=== PATIENT | female | born 1940 | race Caucasian/White ===

== ENCOUNTER → 2016-08-31 | Outpatient (CLI) | payer OTHER ==
--- NOTE | 2016-08-31 17:47 | MR ---
MRI of the Lumbar Spine (Without Contrast) 1544 hours Clinical Indications: Low back pain. M54.5. Technique: Sagittal and axial T1 and T2 and sagittal STIR MR sequences of the lumbar spine, without contrast. Axial imaging from T11 through S1. Comparison: MRI February 2014. Findings: Lumbar vertebral bodies are of normal height, without compression fractures. Conus medull kelsey appears normal and ends at L2. Moderate levoscoliosis. T11-T12: No disk herniation or stenosis. T12-L1: A 2-mm left paramedian disk herniation, without significant central canal or neural foramina l stenosis. L1-L2: Mild degenerative disk disease and minimal disk bulge, with mild bilateral facet arthropathy. No central canal or neural foraminal stenosis. L2-L3: Mild degenerative disk disease, mild disk bulge, mild bilateral facet arthropathy, and minima l retrolisthesis resulting in minimal central canal stenosis, without neural foraminal stenosis. L3-L4: Severe degenerative disk disease, with moderate loss of disk height, circumferential disk bul ge and osteophytes, asymmetrically more prominent towards the right, and severe bilateral facet arthr opathy resulting in minimal degenerative grade 1 retrolisthesis, moderate central canal stenosis, sli ghtly worse than the previous study, severe right neural foraminal stenosis, and mild left neural for aminal stenosis, worse than the previous study also. L4-L5: Severe degenerative disk disease, with moderate loss of disk height, endplate diskogenic delgado ges, circumferential disk bulge and osteophytes, left paramedian 3-mm disk herniation, severe bilater al facet arthropathy, resulting in severe central canal stenosis and mild to moderate bilateral neura l foraminal stenosis, slightly worse than the previous study. L5-S1: Severe degenerative disk disease, severe loss of disk height, degenerative grade 2 anterolist hesis, approximately 8 mm, with unroofing of the disk space and severe bilateral facet arthropathy re sulting in severe central canal stenosis, moderate to severe left neural foraminal stenosis, and mild to moderate right neural foraminal stenosis, worse than the previous study. S1-S2: Moderate-sized rudimentary disk space, without disk herniation or stenosis. Impressions 1. L5-S1: Severe central canal stenosis and moderate to severe left neural foraminal stenosis secon carrie to degenerative grade 2 anterolisthesis, severe degenerative disk disease, disk bulge, and sever e bilateral facet arthropathy. 2. L4-L5: Severe central canal stenosis and mild to moderate bilateral neural foraminal stenosis se condary to severe degenerative disk disease, disk bulge, and severe bilateral facet arthropathy. 3. Interval worsening at L4-L5 and L5-S1 since the previous study. 4. Please see above findings at specific disk levels. E:vonnie
== END ==
LOC: FIMAGING 15:13
PROVIDERS: ATTEND Physician Assistant
DX: M51.25 Other intervertebral disc displacement, thoracolumbar region (principal); M51.36 Other intervertebral disc degeneration, lumbar region; M51.37 Other intervertebral disc degeneration, lumbosacral region; M43.16 Spondylolisthesis, lumbar region; M43.17 Spondylolisthesis, lumbosacral region; M12.88 Other specific arthropathies, not elsewhere classified, other specified site; M99.73 Connective tissue and disc stenosis of intervertebral foramina of lumbar region; M48.06 Spinal stenosis, lumbar region; M48.07 Spinal stenosis, lumbosacral region

== ENCOUNTER → 2017-04-14 | Outpatient (CLI) | payer OTHER | LOC: BHCLAF 14:45 | PROVIDERS: ATTEND Internal Medicine Cardiovascular Disease | DX: I34.0 Nonrheumatic mitral (valve) insufficiency (principal); I36.1 Nonrheumatic tricuspid (valve) insufficiency; I10 Essential (primary) hypertension | CPT/HCPCS: 93306-PO ==

== ENCOUNTER → 2017-11-27 | Outpatient (CLI) | payer OTHER | LOC: FIMAGING 14:34 | PROVIDERS: ATTEND Family Medicine | DX: Z13.820 Encounter for screening for osteoporosis (principal); M85.89 Other specified disorders of bone density and structure, multiple sites; Z78.0 Asymptomatic menopausal state ==

== ENCOUNTER 2018-03-23 20:44 | Observation (INO) | payer OTHER ==
--- NOTE | 2018-03-23 21:05 | EDPHY ---
H & P Time Seen by Provider: 03/23/18 20:52 HPI/ROS: CHIEF COMPLAINT: Left knee pain HISTORY OF PRESENT ILLNESS: Patient is a 77-year-old female with history of severe arthritis bilateral knees reports ground level fall at her house when she tripped over her carpet and landed on her left knee. She did bump her head on a counter on the way down but denies any neck pain or loss of consciousness or headache. She takes a daily 325 aspirin but no other blood thinners. She denies syncopal event loss of consciousness. She denies any chest pain or shortness of breath or abdominal pain. She reports she was able to ambulate briefly after falling but this is painful and has not been able to ambulate since. She lives in a small apartment attached to the house for her children. REVIEW OF SYSTEMS: Constitutional: No fever, no chills. Eyes: No discharge. ENT: No sore throat. Cardiovascular: No chest pain, no palpitations. Respiratory: No cough, no shortness of breath. Gastrointestinal: No abdominal pain, no vomiting. Genitourinary: No hematuria. Musculoskeletal: No back pain. Skin: No rashes. Neurological: No headache. Smoking Status: Never smoked Physical Exam: General Appearance: Alert and no distress. Obese. No signs of head trauma. No cervical spine tenderness Eyes: Pupils equal and round no injection. Respiratory: Chest is nontender, lungs are clear to auscultation. Cardiac: regular rate and rhythm. Gastrointestinal: Abdomen is soft and nontender, no masses, bowel sounds normal. Musculoskeletal: Neck is supple and nontender. Large ecchymosis to left knee without deformity. Neurovascular intact distal to the knee. No leg shortening or external rotation. Log roll with bilateral lower extremity without any pain. Palpation of the pelvis shows no instability Skin: No rashes or lesions. Constitutional: Initial Vital Signs Temperature (C) 36.9 C 03/23/18 20:46 Heart Rate 73 03/23/18 20:46 Respiratory Rate 16 03/23/18 20:46 Blood Pressure 118/87 H 03/23/18 20:46 O2 Sat (%) 98 03/23/18 20:46 O2 Delivery Mode Room Air Allergies/Adverse Reactions: adhesive tape Allergy (Intermediate, Verified 03/23/18 20:50) Blistering skin lisinopril Allergy (Mild, Verified 03/23/18 20:50) COUGH losartan potassium [From Cozaar] Allergy (Unknown, Verified 03/23/18 20:50) Home Medications: Medication Instructions Recorded Diazepam [Valium 5 MG (*)] 5 mg PO HS PRN 03/14/12 Omeprazole 20 mg PO DAILY 03/14/12 Aspirin EC [Aspirin EC 81 mg (*)] 81 mg PO BID 03/22/12 Acetaminophen [Tylenol ES 500 mg 1,000 mg PO Q6 PRN 12/02/13 (*)] Acetaminophen/Codeine 300/30Mg 1 each PO DAILY PRN 12/02/13 [Tylenol #3 (*)] Ascorbic Acid [Vitamin C 500 mg 500 mg PO DAILY 12/02/13 (*)] Calcium Carbonate [Oyster Shell 500 mg PO DAILY 12/02/13 Calcium 500 mg (*)] Citalopram Hydrobromide [celeXA 10 10 mg PO DAILY 12/02/13 MG] Clobetasol Propionate 15 gm TP FR@09 12/02/13 Estrogren Compounded Cream 1 sherie VG Q2D@2100 12/02/13 Gabapentin [Neurontin 300 MG (*)] 600 mg PO HS 12/02/13 Herbals/Supplements -Info Only 1 each PO AD 12/02/13 [place]-3 Fatty Acids [Fish Oil 1000 1,000 mg PO TID 12/02/13 mg (*)] Psyllium Seed/Aspartame [Metamucil 1 tsp PO BID 12/02/13 Powder] Sodium Bicarbonate [Na Bicarb] 1,300 mg PO BID 12/02/13 clonIDINE [Catapres (*)] 0.1 mg PO BID 12/02/13 Metoprolol Tartrate [Lopressor 50 50 mg PO BID 08/18/14 mg (*)] Hydrocortisone Acetate 25 mg [place] BID PRN #4 supp 08/20/14 [Hemorrhoidal Hc 25 mg supp (*)] Oseltamivir Phosphate [Tamiflu 75 75 mg PO BIDMEAL #6 cap 08/20/14 mg (*)] SUMAtriptan [Imitrex Sc Injection] 12 mg SQ Q1H PRN #5 vial 08/20/14 Medical Decision Making - Diagnostics Imaging Results: Imaging Impressions Knee X-Ray 03/23/18 20:58 Impression: 1. No acute osseous abnormality. 2. Small suprapatellar joint effusion. 3. Tricompartment osteoarthrosis. Head CT 03/23/18 21:05 Impression: No acute intracranial process. Changes of chronic microvascular ischemic disease. Findings and recommendations discussed with Tom Lal at 2145 hour , 03/23/2018. ED Course/Re-evaluation: Patient was given [place] for pain and re-evaluated. She felt some improvement with pain and was road tested. She was unable to stand and bear any weight on the knee. She denies any hip pain once again. She was admitted for observation and physical therapy evaluation for safe discharge home. Differential Diagnosis: Skull fracture, intracranial bleed, rib fracture, knee dislocation, hip fracture - Data Points Medications Given: Discontinued Medications Acetaminophen (Tylenol) 1,000 mg PO EDNOW ONE Stop: 03/23/18 21:59 Last Admin: 03/23/18 22:04 Dose: Not Given Acetaminophen/Codeine Phosphate (Tylenol #3) 1 tab PO EDNOW ONE Stop: 03/23/18 22:04 Last Admin: 03/23/18 22:05 Dose: Not Given Hydrocodone Bitart/Acetaminophen ([place] 5/325) 1 tab PO EDNOW ONE Stop: 03/23/18 22:04 Last Admin: 03/23/18 22:06 Dose: 1 tab Departure - Departure Disposition: Home, Routine, Self-Care Clinical Impression: Knee contusion, Scalp contusion Condition: Good
[2018-03-23] MEDS ORDERED: ACETAMINOPHEN 500 MG TAB PO ONE (21:58)
[2018-03-23] MEDS ORDERED: ACETAMINOPHEN 500 MG TAB ONE (21:58)
[2018-03-23] MEDS ORDERED: ACETAMINOPHEN/CODEINE 300/30MG TAB PO ONE (22:03)
[2018-03-23] MEDS ORDERED: HYDROCODONE/APAP 5/325 TAB PO ONE (22:03)
[2018-03-23] MEDS ORDERED: ONDANSETRON DISINTEGRATING 4 MG TAB PO PRN (22:42)
[2018-03-23] MEDS ORDERED: ACETAMINOPHEN 325 MG TAB PO PRN (22:42)
[2018-03-23] MEDS ORDERED: ONDANSETRON 4 MG/2 ML VIAL IVP PRN (22:42)
--- NOTE | 2018-03-24 00:24 | PDGENHP ---
History and Physical - Chief Complaint Fall - History of Present Illness 77 yo F w/ hx of OA, POTS, neuropathy, HTN, and CKD presents after a mechanical fall. Patient was in her usual state of health until today when she tripped on a rug in her house and fell. She fell onto her L knee leading to immediate, severe pain. She denies any precipitating her fall such as chest pain, shortness of breath, or syncope. Her evaluation in the ED was mostly unremarkable aside from L knee contusion and effusion. She has been unable to ambulate as a result and therefore is unsafe to return home, where she lives independently. She is a high fall risk at baseline to due to history of POTS and neuropathy. Case discussed with MI Valdivia in the emergency department; previous records reviewed including last discharge summary by Dr. Natalie Silver available in EMR. History Information - Allergies/Home Medication List Allergies/Adverse Reactions: adhesive tape Allergy (Intermediate, Verified 03/23/18 20:50) Blistering skin lisinopril Allergy (Mild, Verified 03/23/18 20:50) COUGH losartan potassium [From Cozaar] Allergy (Unknown, Verified 03/23/18 20:50) Home Medications: Diazepam [Valium 5 MG (*)] 5 mg PO HS PRN 03/14/12 [Last Taken 08/11/14] Omeprazole 20 mg PO DAILY 03/14/12 [Last Taken 08/17/14] Aspirin EC [Aspirin EC 81 mg (*)] 81 mg PO BID 03/22/12 [Last Taken 08/18/14] Acetaminophen [Tylenol ES 500 mg (*)] 1,000 mg PO Q6 PRN 12/02/13 [Last Taken Unknown] Acetaminophen/Codeine 300/30Mg [Tylenol #3 (*)] 1 each PO DAILY PRN 12/02/13 [ Last Taken Unknown] Ascorbic Acid [Vitamin C 500 mg (*)] 500 mg PO DAILY 12/02/13 [Last Taken Unknown] Calcium Carbonate [Oyster Shell Calcium 500 mg (*)] 500 mg PO DAILY 12/02/13 [ Last Taken Unknown] Citalopram Hydrobromide [celeXA 10 MG] 10 mg PO DAILY 12/02/13 [Last Taken 08/17] Clobetasol Propionate 15 gm TP FR@12/02/13 [Last Taken 08/15/14] Estrogren Compounded Cream 1 sherie VG Q2D@2100 12/02/13 [Last Taken 08/16/14] Gabapentin [Neurontin 300 MG (*)] 600 mg PO HS 12/02/13 [Last Taken 08/16/14] Herbals/Supplements -Info Only 1 each PO AD 12/02/13 [Last Taken 08/17/14] [place]-3 Fatty Acids [Fish Oil 1000 mg (*)] 1,000 mg PO TID 12/02/13 [Last Taken Unknown] Psyllium Seed/Aspartame [Metamucil Powder] 1 tsp PO BID 12/02/13 [Last Taken ] Sodium Bicarbonate [Na Bicarb] 1,300 mg PO BID 12/02/13 [Last Taken 12/02/13 09: 00] clonIDINE [Catapres (*)] 0.1 mg PO BID 12/02/13 [Last Taken 08/17/14] Metoprolol Tartrate [Lopressor 50 mg (*)] 50 mg PO BID 08/18/14 [Last Taken ] I have personally reviewed and updated: family history, medical history - Past Medical History hypertension Additional medical history: CKD. POTS. Neuropathy - Surgical History Reports: appendectomy, colectomy, hysterectomy - Family History Additional family history: Asked, denies - Social History Smoking Status: Never smoked Review of Systems Review of Systems: ROS: 10pt was reviewed & negative except for what was stated in HPI & below Physical Exam Physical Exam: Temp Pulse Resp BP Pulse Ox 36.9 C 61 16 159/77 H 94 03/23/18 20:46 03/23/18 23:58 03/23/18 23:58 03/23/18 23:58 03/23/18 23:58 Constitutional: no apparent distress, obese Eyes: PERRL, EOMI Ears, Nose, Mouth, Throat: moist mucous membranes, no oral mucosal ulcers Cardiovascular: regular rate and rhythym, no murmur, rub, or gallop Respiratory: no respiratory distress, clear to auscultation Gastrointestinal: normoactive bowel sounds, soft, non-tender abdomen Skin: warm, normal color Musculoskeletal: full muscle strength, joint effusion (L knee), other (L knee contusion) Neurologic: AAOx3, CN II-XII Intact Psychiatric: interacting appropriately, not anxious Lab Data & Imaging Review Imaging Review: Imaging Impressions Knee X-Ray 03/23/18 20:58 Impression: 1. No acute osseous abnormality. 2. Small suprapatellar joint effusion. 3. Tricompartment osteoarthrosis. Head CT 03/23/18 21:05 Impression: No acute intracranial process. Changes of chronic microvascular ischemic disease. Findings and recommendations discussed with Tom Lal at 2145 hour , 03/23/2018. Assessment & Plan Assessment: 77 yo F w/ hx of OA, POTS, neuropathy, HTN, and CKD presents after a mechanical fall. Plan: 1. Mechanical fall - Necessitating admission due to inability to ambulate safely after L knee contusion. L knee effusion confirmed on XR(personally interpreted). Patient is a high fall risk at baseline due to history of POTS and neuropathy. She lives independently and is unsafe to return to that environment at this time. - Admit for observation - PT/OT evaluations 2. HTN - Continue home medications 3. CKD - Baseline serum Cr usually ~1.5, will check BMP now. - Monitor BMP - Renally dose medications, avoid nephrotoxic agents 4. POTS, neuropathy - High fall risk Diet - Regular Code - Full Ppx - SCDs Dispo - Admit under observation status
[2018-03-24] MEDS ORDERED: CITALOPRAM 20 MG TAB PO ONE (01:44)
[2018-03-24] MEDS ORDERED: METOPROLOL TARTRATE 50 MG TAB PO ONE (01:44)
[2018-03-24 04:55] LABS: PLATELET COUNT 286 10^3/uL (150-400)
[2018-03-24] MEDS ORDERED: HYDROCODONE/APAP 5/325 TAB PO PRN (05:09)
[2018-03-24] MEDS ORDERED: oxyCODONE IR 5 MG TAB PO PRN (11:03)
[2018-03-24] MEDS ORDERED: PSYLLIUM METAMUCIL 1 PKT PO PRN (11:03)
[2018-03-24] MEDS ORDERED: ACETAMINOPHEN/CODEINE 300/30MG TAB PO PRN (11:03)
[2018-03-24] MEDS ORDERED: SUMAtriptan 6 MG/0.5 ML VIAL SC PRN (11:03)
[2018-03-24] MEDS ORDERED: CITALOPRAM 20 MG TAB PO SCH (11:15)
[2018-03-24] MEDS ORDERED: METOPROLOL TARTRATE 50 MG TAB PO SCH (11:15)
[2018-03-24] MEDS ORDERED: GABAPENTIN 300 MG CAP PO SCH ×2 (11:15→19:30)
[2018-03-24 12:55] VITALS: BP 111/53
--- NOTE | 2018-03-24 13:25 | HOSPPROG ---
Hospitalist Progress Note Assessment/Plan: 77 yo F w/ hx of OA, POTS, neuropathy, HTN, and CKD presents after a mechanical fall. Today is my first encounter with the patient, chart reviewed. * Mechanical fall -CT of head shows nothing acute -Knee xray shows no osseous abnormalitiy, small suprapatellar joint effusion, tricompartment osteoarthritis -PT recommending walker and home care *Left knee effusion -able to ambulate now, knee is less painful w icing -if it worsens, will f/u with Dr Mena *leukocytosis -likely from acute injury -no fever, feeling well *HTN -bp stable *CKD -creatinine is stable *POTS (postural orthostatic tachycardia syndrome )with associated neuropathy -resumed gabapentin *Plan: dc home, f/u with her PCP and Dr Mena if needed Subjective: Shaunna feels well, would like to go home. Prefers no home care. Objective: Vital Signs Temp Pulse Resp BP Pulse Ox 36.6 C 56 L 16 111/53 L 95 03/24/18 12:00 03/24/18 12:00 03/24/18 12:00 03/24/18 12:00 03/24/18 12:00 Laboratory Results 03/24/18 04:20 03/24/18 04:20 - Physical Exam Constitutional: not in pain, chronically ill appearing Eyes: PERRL Ears, Nose, Mouth, Throat: hearing normal Cardiovascular: regular rate and rhythym Respiratory: no respiratory distress Skin: warm, No normal color (pale) Musculoskeletal: generalized weakness Neurologic: AAOx3 Psychiatric: interacting appropriately ICD10 Worksheet Patient Problems: Problems Problem Status Onset Knee contusion Acute Scalp contusion Acute Chronic Disease Mgmt/Transitional Care Acute
[2018-03-24] MEDS ORDERED: OMEGA-3 FATTY ACIDS 1,000 MG CAP PO SCH (16:00)
--- NOTE | 2018-03-24 16:05 | GDS ---
[f rep st] DISCHARGE SUMMARY DISCHARGE DIAGNOSES: 1. Mechanical fall. 2. Left knee effusion. 3. Leukocytosis. 4. Hypertension. 5. Chronic kidney disease. 6. Postural orthostatic tachycardia syndrome with associated neuropathy. HISTORY OF PRESENT ILLNESS: The patient is a 77-year-old female with a history of osteoarthritis, POTS, neuropathy, hypertension, and chronic kidney disease. She presented after having a mechanical fall. She caught her toe and fell sustaining a left knee effusion. Today she was seen and evaluated by Physical Therapy. The patient feels markedly better and would like to go back home. She has declined home care. Recommendation is for her to use a walker any time she ambulates. HOSPITAL COURSE: 1. Mechanical fall. She had a CT of her head, which showed nothing acute. PT is recommending a walker and home care. 2. Left knee effusion. She is much better after getting this iced several times a day. She is able to ambulate well. 3. Leukocytosis. I suspect this is from the acute injury. She has no fever and feeling well. Will have her get a repeat white blood cell count in a week with her doctor. 4. Hypertension. Blood pressure is stable. 5. Chronic kidney disease. Creatinine is stable. 6. POTS syndrome with associated neuropathy. Resumed her gabapentin. DISCHARGE CONDITION: Stable. Blood pressure is 111/53. Heart rate of 56. Respiratory rate is 16. O2 saturation on room air 95%. Temperature 36.6 Celsius. MEDICATIONS AT DISCHARGE: Please see the EMR. DISCHARGE INSTRUCTIONS: 1. Recommending she be careful using narcotics and Valium as well as Ambien because this will put her at high risk for falling. 2. If her knee gets worse with swelling or soreness, to see Dr. Mena. 3. Get a repeat white blood cell count in 1 week. 4. Ice her knee 3-5 times daily for 10-minute intervals. 5. To continue the use of her walker. Copy requested to: Dr. Mena /[id number]/MODL MTDD
[2018-03-25] MEDS ORDERED: CALCIUM CARBONATE 500 MG TAB PO SCH (09:00)
[2018-03-25] MEDS ORDERED: PANTOPRAZOLE SODIUM 40 MG TAB PO SCH (09:00)
[2018-03-25] MEDS ORDERED: ASCORBIC ACID 500 MG TAB PO SCH (09:00)
[2018-03-30] MEDS ORDERED: CLOBETASOL 0.05% 15 GM OINT TUBE TP SCH (09:00)
== END 2018-03-24 15:10 | disposition home or self-care (01) ==
LOC: F3N 03-24 00:37
PROVIDERS: ADMIT Student in an Organized Health Care Education/Training Program; ATTEND Student in an Organized Health Care Education/Training Program
DX: M25.462 Effusion, left knee (principal); S80.02XA Contusion of left knee, initial encounter; S00.03XA Contusion of scalp, initial encounter; D72.829 Elevated white blood cell count, unspecified; I12.9 Hypertensive chronic kidney disease with stage 1 through stage 4 chronic kidney disease, or unspecified chronic kidney disease; N18.9 Chronic kidney disease, unspecified; R00.0 Tachycardia, unspecified; G62.9 Polyneuropathy, unspecified; W19.XXXA Unspecified fall, initial encounter; Y92.009 Unspecified place in unspecified non-institutional (private) residence as the place of occurrence of the external cause; Y99.9 Unspecified external cause status; Y93.9 Activity, unspecified
CPT/HCPCS: 70450; 73564; 92523; 97161; G0378; G8978; G8979; G8980; G9168; G9169; G9170